=== PATIENT | male | born 1980 | race Two or more races ===

== ENCOUNTER 2018-12-02 12:08 | Outpatient (CLI) | payer OTHER ==
[~2018-12-02] VITALS: Ht 170.2 cm; Wt 85.3 kg
[2018-12-02] MEDS ORDERED: MARINOL5 MG ORAL (12:49)
[2018-12-02] MEDS ORDERED: ATRIPLA TABLET1 EAC1 ORAL (12:49)
[2018-12-02] MEDS ORDERED: FLUOXETINE HCL10 MG ORAL (12:49)
[2018-12-02] MEDS ORDERED: FINASTERIDE1 MG PO (12:50)
--- NOTE | 2018-12-02 12:54 | GI Initial Consult Note ---
History of Present Illness General Date patient seen: Dec 02, 2018 Time patient seen: 12:44 Referring physician: HMO Reason for Consultation: Crohns Present Illness HPI This is a 38-year-old male patient, was referred to us by his primary care for complaint of severe abdominal pain and excessive diarrhea. The patient notes that he has a history of Crohn's disease, which was diagnosed approximately 10 years ago. His last colonoscopy was performed approximately 8 months ago in which he was placed on 6-MP. Patient presents today with severe abdominal pain , severe tenderness in all quadrants, persistent diarrhea, rectal bleed, nausea vomiting, abdominal bloating, fecal incontinence and occasional hematochezia. The patient states he has been a month without his medication and thus requesting referral to gastrointestinal to manage his care. Significant past medical history includes Crohn's disease, HIV. Patient denies any past surgical history. Patient denies any significant family history of cancer. The patient states he does not use EtOH or tobacco. States he uses recreational marijuana. Denies any unintentional weight loss or changes in dietary habits. No signs of abuse or neglect. Patient is not fall risk. Home Meds Reported Medications Finasteride (FINASTERIDE) Unknown Strength Tablet, PO, TAB 12/02/18 Dronabinol* (MARINOL*) 5 Mg Capsule, 5 MG ORAL THREE TIMES A DAY, #15 CAP 0 Refills 12/02/18 Efavirenz/Emtricitab/Tenofovir (ATRIPLA) 1 Each Tablet, 1 TAB ORAL DAILY, TAB 12/02/18 Fluoxetine Hcl* (FLUOXETINE HCL*) Unknown Strength Capsule, ORAL DAILY, CAP 12/02/18 Med list reviewed/reconciled: Yes Allergies: Coded Allergies: Bactrim (Unverified Allergy, Severe, 12/02/18) Patient History History Provided By: Patient, Medical Record PMH Narrative Hypertension Crohn's disease Anorexia Alopecia Anxiety Diarrhea PTSD HIV positive Suicidal attempt Social History: Reports: drug use Social History Narrative Patient was in senior living for 10 years Review of Systems All Other Systems: negative except mentioned in HPI Physical Exam Temperature 97.6 Blood pressure 118/77 Pulse is 75 97% room air Height 5 foot 7 inches Weight 188.6 pounds Sp02 EP Interpretation: reviewed, normal General Appearance: well appearing, no apparent distress, alert Head: normocephalic EENT: PERRL/EOMI, normal ENT inspection Neck: supple Respiratory: normal breath sounds, no respiratory distress Cardiovascular: normal rate Gastrointestinal: normal inspection, non tender, soft, normal bowel sounds, non -distended Rectal: deferred Genitourinary: deferred Musculoskeletal: normal inspection, back normal Neurologic: normal inspection, alert, oriented x3, responsive Psychiatric: normal inspection, judgement/insight normal, memory normal Skin: normal inspection, normal color, no rash, warm/dry, palpation normal, well hydrated Lymphatic: normal inspection, no adenopathy GI: Plan Problems: (1) Crohn's colitis (2) HIV (human immunodeficiency virus infection) (3) Diarrhea (4) Dehydration (5) Abdominal pain (6) Electrolyte imbalance Plan Patient had recent colonoscopy approximately 8 months ago. Recent lab draw reviewed from patient file. Prescription given for the Lialda and 6-MP. Return to clinic in 2 months. Patient was instructed to go to the emergency room if abdominal pain or persistent diarrhea becomes unbearable. Discussed with Dr. Hernandez. Thank you for this patient referral, we will follow. The patient was seen and examined at bedside and all new and available data was reviewed in the patients chart. I agree with the above findings, impression and plan. (Patient seen earlier today. Signature stamp does not reflect patient encounter time.). - MD Tatiana Richter,[facility] Dec 02, 2018 12:54
[2018-12-02 13:03] VITALS: BP 118/77
[2018-12-02] MEDS ORDERED: MARINOL2.5 MG ORAL (13:09)
== END 2018-12-02 14:08 | disposition home or self-care (01) ==
LOC: PAN 12:08
DX: R10.9 Unspecified abdominal pain (principal); K50.90 Crohn's disease, unspecified, without complications; B20 Human immunodeficiency virus [HIV] disease; R19.7 Diarrhea, unspecified; E86.0 Dehydration; E87.8 Other disorders of electrolyte and fluid balance, not elsewhere classified; Z79.899 Other long term (current) drug therapy; F41.9 Anxiety disorder, unspecified; Z88.8 Allergy status to other drugs, medicaments and biological substances; Z91.5 Personal history of self-harm
CPT/HCPCS: 99202

== ENCOUNTER → 2019-10-21 | Outpatient (CLI) | payer OTHER ==
[~2019-10-21] MED LIST: ATRIPLA TABLET1 EAC1 ORAL; FINASTERIDE1 MG PO; FLUOXETINE HCL10 MG ORAL; LIALDA1.2 GM ORAL; MARINOL2.5 MG ORAL; MARINOL5 MG ORAL; MERCAPTOPURINE50 MG PO
[2019-10-21 14:19] VITALS: BP 133/88
--- NOTE | 2019-10-21 16:30 | Consultation ---
DATE OF CONSULTATION: 10/21/2019 CONSULTING PHYSICIAN: Bennett Hernandez MD. CHIEF COMPLAINT: Complaint of diarrhea, rectal bleeding. HISTORY OF PRESENT ILLNESS: This is a 39-year-old male with diagnosis of Crohn disease since age of 25. Last colonoscopy according to him was roughly about a year and a half to two years ago when he was in shelter. I do not have records of any of these things. Apparently, he is on 6-MP and Lialda with not having recurrent symptoms. PAST MEDICAL HISTORY: 1. History of Crohn disease. 2. HIV. PHYSICAL EXAMINATION: VITAL SIGNS: Temperature is 97.6, blood pressure is 132/80, pulse is 81, respirations 20. HEENT: Normocephalic, atraumatic. Sclerae anicteric. NECK: Supple. No evidence of obvious lymphadenopathy. CARDIOVASCULAR: Regular rate and rhythm. Plus S1, S2. LUNGS: Clear to auscultation bilaterally. ABDOMEN: Positive bowel sounds. There is tenderness to palpation diffusely. No rebound. No guarding. No peritoneal sign. EXTREMITIES: No cyanosis. No clubbing. No edema. ASSESSMENT AND PLAN: This is a 39-year-old male with HIV and Crohn disease. Currently on 6-MP and Lialda. The patient has signs and symptoms of flare-up. I offered the patient to have a colonoscopy; at this time, he is refusing. Apparently, he had a C. difficile checked a few months ago; it was negative. He had labs also checked and his HIV labs apparently were negative for any abnormality. Again, he is refusing repeat colonoscopy. He was given a prescription for Lialda and 6-MP 100 mg p.o. daily. The patient also was given prednisone taper starting at 40 and going down by 5 mg per week. The patient was encouraged to get a colonoscopy. He was told to come back or go to the emergency room if he has fevers, chills, severe abdominal pain, or severe bleeding. Bennett Hernandez M.D. DR: BIN JOB#: [id number] CC:
== END | disposition home or self-care (01) ==
LOC: PAN 09:18
DX: R19.7 Diarrhea, unspecified (principal); K62.5 Hemorrhage of anus and rectum; B20 Human immunodeficiency virus [HIV] disease; K50.90 Crohn's disease, unspecified, without complications
CPT/HCPCS: 99212